=== PATIENT | female | born 1955 | race Caucasian/White ===

== ENCOUNTER 2021-03-24 19:05 | Inpatient (IN) | payer OTHER ==
[~2021-03-24] VITALS: Ht 149.9 cm; Wt 78.5 kg
[2021-03-24] MEDS ORDERED: ONDANSETRON HCL 4MG/2ML INJ IV STA (19:12)
[2021-03-24] MEDS ORDERED: SODIUM CHLORIDE 0.9% 500 ML IV ONE (19:15)
[2021-03-24 20:58] LABS: MEAN CORPUSCULAR HEMOGLOBIN 33.9 pg (28.0-32.0); MEAN CORPUSCULAR VOLUME 104.6 fL (81.0-99.0); MEAN PLATELET VOLUME 10.4 fl (7.4-10.4); PLATELET 149 x1000/uL (130-400); RED BLOOD CELL COUNT 1.67 mill/uL (4.2-5.4)
[2021-03-24] MEDS ORDERED: ACETAMINOPHEN 325MG TABLET PO ONE (21:00)
[2021-03-24 21:03] LABS: CHLORIDE 107 mEq/L (98-107)
[2021-03-24 21:08] LABS: ETHANOL BLOOD < 10 mg/dL
[2021-03-24 21:11] LABS: CREATINE KINASE 41 IU/L (26-192); PROTHROMBIN TIME 10.8 sec (9.6-11.0)
[2021-03-24 21:17] LABS: HEMATOCRIT. 17.5 % (36.0-48.0); HEMOGLOBIN. 5.7 g/dL (12.0-16.0)
[2021-03-24] MEDS ORDERED: PANTOPRAZOLE SODIUM 40 MG/VIAL IV NR (21:45)
[2021-03-24 22:14] LABS: PLATELET ESTIMATE NORMAL
[2021-03-24] MEDS ORDERED: CLONIDINE 0.1MG TABLET PO PRN (22:30)
[2021-03-24] MEDS ORDERED: ACETAMINOPHEN 325MG TABLET PO PRN (22:30)
[2021-03-24] MEDS ORDERED: DOCUSATE SODIUM 100MG CAPSULE PO PRN (22:30)
[2021-03-24] MEDS ORDERED: IPRATROPIUM/ALBUTEROL 0.5-3(2.5)MG/3ML NEB NEB PRN (22:30)
[2021-03-24] MEDS ORDERED: GUAIFENESIN 200MG/10ML SUGAR FREE UDC PO PRN (22:30)
[2021-03-24] MEDS ORDERED: MAGNESIUM/ALUMINUM HYDROXIDE/SIMETHICONE 30ML UDC PO PRN (22:30)
[2021-03-24] MEDS ORDERED: PANTOPRAZOLE 80 MG in SODIUM CHLORIDE 0.9% 100 ML IV SCH (23:00)
[2021-03-25] LABS: TOTAL IRON BINDING CAPACITY 158 ug/dL (250-450)
[2021-03-25 01:33] LABS: VITAMIN B12 SERUM 682 pg/mL (211-911)
[2021-03-25 01:34] LABS: FOLIC ACID (FOLATE) SERUM > 20.00 ng/mL (>5.38)
[2021-03-25] MEDS: DEXT 5%/0.45% NACL 1000ML 1,000 ML IV SCH ×3 (02:24→20:26)
[2021-03-25 06:16] LABS: CHLORIDE 111 mEq/L (98-107)
[2021-03-25 06:23] LABS: PHOSPHORUS 4.5 mg/dL (2.5-4.9)
[2021-03-25 06:41] LABS: BASOPHILS % 0.2 % (0.0-2.0); EOSINOPHILS % 0.1 % (0.0-5.0); HEMATOCRIT. 23.9 % (36.0-48.0); LYMPHOCYTES % 9.4 % (20.0-50.0); MEAN CORPUSCULAR HEMOGLOBIN 32.8 pg (28.0-32.0); MEAN CORPUSCULAR VOLUME 97.4 fL (81.0-99.0); MEAN PLATELET VOLUME 10.4 fl (7.4-10.4); MONOCYTES % 6.4 % (2.0-8.0); NEUTROPHILS % 83.9 % (40.0-76.0); PLATELET 100 x1000/uL (130-400); RED BLOOD CELL COUNT 2.46 mill/uL (4.2-5.4); RED CELL DISTRIBUTION WIDTH 17.5 % (11.6-14.6)
[2021-03-25] MEDS: PANTOPRAZOLE 80 MG in SODIUM CHLORIDE 0.9% 100 ML IV SCH ×2 (07:14→20:22)
[2021-03-25] MEDS ORDERED: CEFTRIAXONE 1 G PREMIX 50 ML IV SCH (09:00)
[2021-03-25] MEDS: ONDANSETRON HCL 4MG/2ML INJ IV PRN (10:13)
[2021-03-25] MEDS ORDERED: PANTOPRAZOLE SODIUM 40 MG/VIAL IV ONE (10:18)
[2021-03-25] MEDS ORDERED: NALOXONE HCL 0.4MG/ML VIAL IV PRN (16:30)
[2021-03-25] MEDS ORDERED: DEXTROSE 50% WATER 50ML SYRINGE IV PRN (16:30)
[2021-03-25] MEDS: INSULIN LISPRO 100 UNITS/ML SUBCUT SCH ×2 (17:00→23:31)
[2021-03-25] MEDS: MORPHINE SULFATE 2 MG/ML CPJ (NOT FOR IM USE) IV PRN (17:44)
[2021-03-25] MEDS: BLOOD SUGAR DIAGNOSTIC STRIP TEST SCH ×2 (17:45→21:18)
[2021-03-25 18:51] LABS: HEMATOCRIT 21.3 % (36.0-48.0); HEMOGLOBIN 7.2 g/dL (12.0-16.0)
[2021-03-25 22:00] VITALS: BP 107/60
[2021-03-26] VITALS (9 sets, daily range): BP systolic 96–132; BP diastolic 45–67
[2021-03-26] MEDS: MORPHINE SULFATE 2 MG/ML CPJ (NOT FOR IM USE) IV PRN (00:45)
[2021-03-26] MEDS: ONDANSETRON HCL 4MG/2ML INJ IV PRN ×3 (00:45→18:17)
[2021-03-26] MEDS: PANTOPRAZOLE 80 MG in SODIUM CHLORIDE 0.9% 100 ML IV SCH (06:18)
[2021-03-26] MEDS: DEXT 5%/0.45% NACL 1000ML 1,000 ML IV SCH ×2 (06:19→15:07)
[2021-03-26] MEDS: BLOOD SUGAR DIAGNOSTIC STRIP TEST SCH ×4 (06:22→21:46)
[2021-03-26] MEDS: INSULIN LISPRO 100 UNITS/ML SUBCUT SCH ×4 (07:23→21:57)
[2021-03-26] MEDS: ACETAMINOPHEN 325MG TABLET PO PRN ×2 (08:13→13:11)
[2021-03-26] MEDS: CEFTRIAXONE 1,000 MG in DEXTROSE 5% WATER 50 ML IV SCH (08:13)
[2021-03-26 13:17] LABS: BASOPHILS % 0.1 % (0.0-2.0); EOSINOPHILS % 0.1 % (0.0-5.0); HEMATOCRIT. 25.8 % (36.0-48.0); HEMOGLOBIN. 8.7 g/dL (12.0-16.0); LYMPHOCYTES % 8.2 % (20.0-50.0); MEAN CORPUSCULAR HEMOGLOBIN 31.8 pg (28.0-32.0); MEAN CORPUSCULAR VOLUME 94.5 fL (81.0-99.0); MONOCYTES % 5.5 % (2.0-8.0); NEUTROPHILS % 86.1 % (40.0-76.0); PLATELET 82 x1000/uL (130-400); RED BLOOD CELL COUNT 2.73 mill/uL (4.2-5.4); RED CELL DISTRIBUTION WIDTH 18.4 % (11.6-14.6)
[2021-03-26 13:29] LABS: PROTHROMBIN TIME 10.8 sec (9.6-11.0)
[2021-03-26] MEDS ORDERED: LORAZEPAM 2MG/ML CPJ IV PRN (13:45)
[2021-03-26] MEDS: HYDROCODONE/ACETAMINOPHEN 5/325MG TABLET PO PRN ×2 (15:07→22:02)
[2021-03-26] MEDS: VANCOMYCIN HCL 1000 MG/20 ML ORAL PO SCH ×2 (15:32→23:22)
[2021-03-26 17:48] LABS: CLARITY URINE TURBID (CLEAR); COLOR URINE ORANGE (YELLOW); KETONES URINE TRACE (NEGATIVE); LEUKOCYTE ESTERASE URINE 1+ (NEGATIVE); NITRITE URINE NEGATIVE (NEGATIVE); OCCULT BLOOD URINE 3+ (NEGATIVE); PH URINE 5.5 (4.5-8.0); PROTEIN URINE 3+ (NEGATIVE); SPECIFIC GRAVITY URINE 1.028 (1.005-1.030); UROBILINOGEN URINE 0.2 E.U./dL (0.2-1.0)
[2021-03-26] MEDS ORDERED: VANCOMYCIN HCL 1 GM/VIAL PO SCH (18:00)
[2021-03-26 21:29] LABS: HEMATOCRIT 24.1 % (36.0-48.0); HEMOGLOBIN 8.4 g/dL (12.0-16.0)
[2021-03-26] MEDS: PANTOPRAZOLE SODIUM 40 MG/VIAL IV SCH (21:56)
[2021-03-27] VITALS: BP 130/63
[2021-03-27] MEDS: DEXT 5%/0.45% NACL 1000ML 1,000 ML IV SCH ×3 (01:14→21:00)
[2021-03-27 04:00] VITALS: BP 108/59
[2021-03-27] MEDS: HYDROCODONE/ACETAMINOPHEN 5/325MG TABLET PO PRN (04:45)
[2021-03-27] MEDS: MORPHINE SULFATE 2 MG/ML CPJ (NOT FOR IM USE) IV PRN ×2 (05:28→12:33)
[2021-03-27 06:15] LABS: BASOPHILS % 0.4 % (0.0-2.0); EOSINOPHILS % 0.5 % (0.0-5.0); HEMATOCRIT. 25.9 % (36.0-48.0); HEMOGLOBIN. 8.7 g/dL (12.0-16.0); LYMPHOCYTES % 10.7 % (20.0-50.0); MEAN CORPUSCULAR HEMOGLOBIN 31.7 pg (28.0-32.0); MEAN CORPUSCULAR VOLUME 93.9 fL (81.0-99.0); MEAN PLATELET VOLUME 9.1 fl (7.4-10.4); NEUTROPHILS % 82.4 % (40.0-76.0); PLATELET 124 x1000/uL (130-400); RED BLOOD CELL COUNT 2.76 mill/uL (4.2-5.4); RED CELL DISTRIBUTION WIDTH 18.8 % (11.6-14.6)
[2021-03-27] MEDS: VANCOMYCIN HCL 1000 MG/20 ML ORAL PO SCH ×3 (06:35→21:21)
[2021-03-27] MEDS: BLOOD SUGAR DIAGNOSTIC STRIP TEST SCH ×4 (06:35→21:15)
[2021-03-27] MEDS: INSULIN LISPRO 100 UNITS/ML SUBCUT SCH ×4 (06:57→21:36)
[2021-03-27 08:20] VITALS: BP 102/55
[2021-03-27] MEDS: PANTOPRAZOLE SODIUM 40 MG/VIAL IV SCH ×2 (08:57→21:21)
[2021-03-27] MEDS: ONDANSETRON HCL 4MG/2ML INJ IV PRN ×2 (08:57→18:16)
[2021-03-27] MEDS: CEFTRIAXONE 1,000 MG in DEXTROSE 5% WATER 50 ML IV SCH (08:58)
[2021-03-27 12:05] VITALS: BP 121/66
[2021-03-27] MEDS ORDERED: PROT40 MT (13:51)
[2021-03-27] MEDS ORDERED: VANC125C11 MT (13:51)
[2021-03-27] MEDS ORDERED: ONDA4TAB5 MT (13:51)
[2021-03-27] MEDS ORDERED: HYDR-4001 MT (13:51)
[2021-03-27] MEDS: ACETAMINOPHEN 325MG TABLET PO PRN ×2 (16:02→23:22)
[2021-03-27 16:16] VITALS: BP 112/64
[2021-03-27 20:00] VITALS: BP 101/53
[2021-03-27] MEDS: METOCLOPRAMIDE HCL 10MG/2ML VIAL IV SCH (23:14)
[2021-03-28] VITALS (10 sets, daily range): BP systolic 91–153; BP diastolic 38–82
[2021-03-28 05:48] LABS: BASOPHILS % 0.1 % (0.0-2.0); EOSINOPHILS % 0.4 % (0.0-5.0); HEMATOCRIT. 22.6 % (36.0-48.0); HEMOGLOBIN. 7.6 g/dL (12.0-16.0); LYMPHOCYTES % 10.7 % (20.0-50.0); MEAN CORPUSCULAR VOLUME 94.6 fL (81.0-99.0); MEAN PLATELET VOLUME 9.6 fl (7.4-10.4); NEUTROPHILS % 82.8 % (40.0-76.0); PLATELET 85 x1000/uL (130-400); RED BLOOD CELL COUNT 2.39 mill/uL (4.2-5.4); RED CELL DISTRIBUTION WIDTH 19.2 % (11.6-14.6)
[2021-03-28] MEDS: DEXT 5%/0.45% NACL 1000ML 1,000 ML IV SCH ×2 (06:49→17:18)
[2021-03-28] MEDS: BLOOD SUGAR DIAGNOSTIC STRIP TEST SCH ×4 (06:50→21:21)
[2021-03-28] MEDS: VANCOMYCIN HCL 1000 MG/20 ML ORAL PO SCH ×3 (06:52→22:09)
[2021-03-28] MEDS: METOCLOPRAMIDE HCL 10MG/2ML VIAL IV SCH ×4 (06:53→23:42)
[2021-03-28] MEDS: INSULIN LISPRO 100 UNITS/ML SUBCUT SCH ×4 (07:50→22:16)
[2021-03-28] MEDS: PANTOPRAZOLE SODIUM 40 MG/VIAL IV SCH ×2 (08:55→22:09)
[2021-03-28] MEDS: CEFTRIAXONE 1,000 MG in DEXTROSE 5% WATER 50 ML IV SCH (08:55)
[2021-03-28] MEDS: ACETAMINOPHEN 325MG TABLET PO PRN ×3 (08:59→23:43)
[2021-03-28 17:30] LABS: HEMATOCRIT 28.3 % (36.0-48.0); HEMOGLOBIN 9.7 g/dL (12.0-16.0)
[2021-03-28 17:56] LABS: INR 0.9; PROTHROMBIN TIME 10.2 sec (9.6-11.0)
[2021-03-29] VITALS: BP 120/58
[2021-03-29] MEDS: DEXT 5%/0.45% NACL 1000ML 1,000 ML IV SCH ×3 (02:25→23:00)
[2021-03-29 04:00] VITALS: BP 113/58
[2021-03-29] MEDS: ACETAMINOPHEN 325MG TABLET PO PRN ×3 (06:26→21:21)
[2021-03-29] MEDS: VANCOMYCIN HCL 1000 MG/20 ML ORAL PO SCH ×3 (06:26→21:21)
[2021-03-29] MEDS: METOCLOPRAMIDE HCL 10MG/2ML VIAL IV SCH ×3 (06:26→18:21)
[2021-03-29] MEDS: BLOOD SUGAR DIAGNOSTIC STRIP TEST SCH ×4 (06:26→20:23)
[2021-03-29 06:47] LABS: BASOPHILS % 0.2 % (0.0-2.0); EOSINOPHILS % 0.5 % (0.0-5.0); HEMATOCRIT. 27.1 % (36.0-48.0); LYMPHOCYTES % 11.5 % (20.0-50.0); MEAN CORPUSCULAR HEMOGLOBIN 32.1 pg (28.0-32.0); MEAN CORPUSCULAR VOLUME 97.3 fL (81.0-99.0); MEAN PLATELET VOLUME 8.8 fl (7.4-10.4); MONOCYTES % 6.5 % (2.0-8.0); NEUTROPHILS % 81.3 % (40.0-76.0); PLATELET 101 x1000/uL (130-400); RED BLOOD CELL COUNT 2.79 mill/uL (4.2-5.4); RED CELL DISTRIBUTION WIDTH 18.6 % (11.6-14.6)
[2021-03-29] MEDS: INSULIN LISPRO 100 UNITS/ML SUBCUT SCH ×4 (06:49→20:34)
[2021-03-29] MEDS: CEFTRIAXONE 1,000 MG in DEXTROSE 5% WATER 50 ML IV SCH (10:00)
[2021-03-29] MEDS: PANTOPRAZOLE SODIUM 40 MG/VIAL IV SCH ×2 (10:00→20:19)
[2021-03-29] MEDS ORDERED: POTASSIUM CHLORIDE 20MEQ TABLET SR PO NR (11:15)
[2021-03-29 16:00] VITALS: BP 112/63
[2021-03-29 16:55] LABS: HEMATOCRIT. 32.2 % (36.0-48.0); HEMOGLOBIN. 10.4 g/dL (12.0-16.0); MEAN CORPUSCULAR HEMOGLOBIN 31.7 pg (28.0-32.0); MEAN CORPUSCULAR VOLUME 97.8 fL (81.0-99.0); MEAN PLATELET VOLUME 9.2 fl (7.4-10.4); PLATELET 125 x1000/uL (130-400); RED BLOOD CELL COUNT 3.29 mill/uL (4.2-5.4); RED CELL DISTRIBUTION WIDTH 18.9 % (11.6-14.6)
[2021-03-29 17:42] LABS: PLATELET ESTIMATE DECREASED
[2021-03-29 20:00] VITALS: BP 140/70
[2021-03-30] VITALS (10 sets, daily range): BP systolic 98–146; BP diastolic 40–95
[2021-03-30] MEDS: METOCLOPRAMIDE HCL 10MG/2ML VIAL IV SCH ×4 (00:16→17:25)
[2021-03-30] MEDS: ACETAMINOPHEN 325MG TABLET PO PRN ×3 (03:56→17:26)
[2021-03-30] MEDS: VANCOMYCIN HCL 1000 MG/20 ML ORAL PO SCH ×3 (06:01→21:31)
[2021-03-30] MEDS: BLOOD SUGAR DIAGNOSTIC STRIP TEST SCH ×4 (06:02→21:31)
[2021-03-30 06:57] LABS: BASOPHILS % 0.2 % (0.0-2.0); EOSINOPHILS % 0.7 % (0.0-5.0); LYMPHOCYTES % 10.7 % (20.0-50.0); MEAN CORPUSCULAR HEMOGLOBIN 32.1 pg (28.0-32.0); MEAN CORPUSCULAR VOLUME 94.7 fL (81.0-99.0); MEAN PLATELET VOLUME 8.9 fl (7.4-10.4); NEUTROPHILS % 82.4 % (40.0-76.0); PLATELET 96 x1000/uL (130-400); RED BLOOD CELL COUNT 2.69 mill/uL (4.2-5.4); RED CELL DISTRIBUTION WIDTH 18.2 % (11.6-14.6)
[2021-03-30] MEDS: INSULIN LISPRO 100 UNITS/ML SUBCUT SCH ×4 (07:50→21:36)
[2021-03-30 08:28] LABS: HEMATOCRIT. 25.5 % (36.0-48.0); HEMOGLOBIN. 8.6 g/dL (12.0-16.0)
[2021-03-30] MEDS: DEXT 5%/0.45% NACL 1000ML 1,000 ML IV SCH ×2 (08:33→19:00)
[2021-03-30] MEDS: PANTOPRAZOLE SODIUM 40 MG/VIAL IV SCH ×2 (08:33→21:29)
[2021-03-30] MEDS: GABAPENTIN 100MG CAPSULE PO SCH ×2 (11:56→17:25)
[2021-03-30 17:59] LABS: HEMATOCRIT 30.2 % (36.0-48.0); HEMOGLOBIN 10.3 g/dL (12.0-16.0)
[2021-03-30 18:08] LABS: PROTHROMBIN TIME 10.4 sec (9.6-11.0)
[2021-03-31] VITALS (7 sets, daily range): BP systolic 95–133; BP diastolic 56–78
[2021-03-31] MEDS: METOCLOPRAMIDE HCL 10MG/2ML VIAL IV SCH ×3 (00:14→14:05)
[2021-03-31] MEDS: ACETAMINOPHEN 325MG TABLET PO PRN ×3 (00:17→21:35)
[2021-03-31] MEDS: VANCOMYCIN HCL 1000 MG/20 ML ORAL PO SCH (06:07)
[2021-03-31] MEDS: DEXT 5%/0.45% NACL 1000ML 1,000 ML IV SCH (06:07)
[2021-03-31] MEDS: BLOOD SUGAR DIAGNOSTIC STRIP TEST SCH ×3 (06:08→16:43)
[2021-03-31 07:30] LABS: BASOPHILS % 0.2 % (0.0-2.0); HEMATOCRIT. 31.4 % (36.0-48.0); HEMOGLOBIN. 10.2 g/dL (12.0-16.0); LYMPHOCYTES % 12.9 % (20.0-50.0); MEAN CORPUSCULAR HEMOGLOBIN 31.8 pg (28.0-32.0); MEAN CORPUSCULAR VOLUME 97.4 fL (81.0-99.0); MEAN PLATELET VOLUME 9.2 fl (7.4-10.4); MONOCYTES % 6.5 % (2.0-8.0); NEUTROPHILS % 79.4 % (40.0-76.0); PLATELET 105 x1000/uL (130-400); RED BLOOD CELL COUNT 3.23 mill/uL (4.2-5.4); RED CELL DISTRIBUTION WIDTH 18.3 % (11.6-14.6)
[2021-03-31] MEDS: INSULIN LISPRO 100 UNITS/ML SUBCUT SCH ×3 (07:50→16:43)
[2021-03-31] MEDS: HYDROCODONE/ACETAMINOPHEN 5/325MG TABLET PO PRN (09:47)
[2021-03-31] MEDS: PANTOPRAZOLE SODIUM 40 MG/VIAL IV SCH (09:47)
[2021-03-31] MEDS: GABAPENTIN 100MG CAPSULE PO SCH ×3 (09:47→16:43)
[2021-03-31] MEDS ORDERED: VANCOMYCIN HCL 1 GM/VIAL PO SCH (18:00)
[2021-03-31] MEDS ORDERED: VANCOMYCIN HCL 1000 MG/20 ML ORAL PO SCH (18:00)
[2021-04-01 04:07] LABS: OVA & PARASITE EXAM Final report (.)
== END 2021-03-31 22:55 | DRG 377 ==
LOC: ER 19:05 → MICUSO 22:10 → EDBEDREQTM 22:14 → EDBEDREQ 22:14 → EDBEDREQSVC 03-25 01:57 → 6WST 03-25 20:48
PROVIDERS: ADMIT Internal Medicine; ATTEND Internal Medicine
PROC: 30233N1 Transfusion of Nonautologous Red Blood Cells into Peripheral Vein, Percutaneous Approach (ICD-10-PCS; principal; 2021-03-24)
DX: K92.2 Gastrointestinal hemorrhage, unspecified (principal); E43 Unspecified severe protein-calorie malnutrition; D62 Acute posthemorrhagic anemia; E87.1 Hypo-osmolality and hyponatremia; C56.9 Malignant neoplasm of unspecified ovary; E87.2 Acidosis; N17.9 Acute kidney failure, unspecified; N13.30 Unspecified hydronephrosis; A04.72 Enterocolitis due to Clostridium difficile, not specified as recurrent; C79.9 Secondary malignant neoplasm of unspecified site; D69.6 Thrombocytopenia, unspecified; E83.51 Hypocalcemia; I10 Essential (primary) hypertension; D53.9 Nutritional anemia, unspecified; D64.81 Anemia due to antineoplastic chemotherapy; T45.1X5A Adverse effect of antineoplastic and immunosuppressive drugs, initial encounter; Z20.822 Contact with and (suspected) exposure to COVID-19; E11.65 Type 2 diabetes mellitus with hyperglycemia; I95.9 Hypotension, unspecified; E78.5 Hyperlipidemia, unspecified; N93.9 Abnormal uterine and vaginal bleeding, unspecified; Y92.89 Other specified places as the place of occurrence of the external cause; Z68.35 Body mass index [BMI] 35.0-35.9, adult
CPT/HCPCS: 36415; 71045; 74176; 76856; 80048; 80053; 80320; 81003; 82270; 82550; 82607; 82728; 82746; 82962; 83036; 83540; 83550; 83605; 83615; 83735; 83880; 84100; 84145; 84484; 85014; 85018; 85025; 85049; 85384; 86140; 86850; 86900; 86920; 87045; 87177; 87209; 87426; 87493; 89055; 93005; 93970; 97116; 97162; 97530; 99291; C9113; J0696; J1815; J2270; J2405; J2765; J3370; J7040; J7042; J7050; J7060; P9016; G0480

== ENCOUNTER 2021-05-28 12:53 | Inpatient (IN) | payer OTHER ==
[~2021-05-28] VITALS: Ht 149.9 cm; Wt 103.6 kg
[~2021-05-28 12:53] MED LIST: HYDR-4001 MT; ONDA4TAB5 MT; PROT40 MT; VANC125C11 MT
[2021-05-28] MEDS ORDERED: omeprazole (13:14)
[2021-05-28] MEDS ORDERED: metformin (13:14)
[2021-05-28] MEDS ORDERED: gabapentin (13:14)
[2021-05-28] MEDS ORDERED: zofran (13:14)
[2021-05-28 16:31] LABS: HEMATOCRIT. 28.2 % (36.0-48.0); HEMOGLOBIN. 8.6 g/dL (12.0-16.0); MEAN CORPUSCULAR HEMOGLOBIN 32.4 pg (28.0-32.0); MEAN CORPUSCULAR VOLUME 106.3 fL (81.0-99.0); PLATELET 141 x1000/uL (130-400); RED BLOOD CELL COUNT 2.65 mill/uL (4.2-5.4); RED CELL DISTRIBUTION WIDTH 20.2 % (11.6-14.6)
[2021-05-28 16:38] LABS: CHLORIDE 110 mEq/L (98-107)
[2021-05-28 16:39] LABS: INR 1.1; PROTHROMBIN TIME 11.6 sec (9.6-11.0)
[2021-05-28] MEDS ORDERED: FUROSEMIDE 100MG/10ML VIAL IV STA (17:05)
[2021-05-28] MEDS ORDERED: ALBUTEROL (0.083%) 2.5MG/3ML NEB HHN ONE (17:15)
[2021-05-28] MEDS ORDERED: CALCIUM CHLORIDE 1GM/10ML SYR IV ONE (17:15)
[2021-05-28] MEDS ORDERED: AZITHROMYCIN 500MG/250ML 250 ML IV ONE (17:15)
[2021-05-28] MEDS ORDERED: PIPERACILLIN/TAZOBACTAM 3.375GM/50ML PREMIX IV ONE (17:15)
[2021-05-28] MEDS ORDERED: SODIUM BICARBONATE 8.4% 1 MEQ/ML 50ML SYR IV ONE (17:15)
[2021-05-28] MEDS ORDERED: DEXTROSE 50% WATER 50ML SYRINGE IV ONE (17:15)
[2021-05-28] MEDS ORDERED: INSULIN REGULAR (HUMULIN R) 300UNITS/3ML VIAL IV ONE (17:15)
[2021-05-28] MEDS ORDERED: PIPERACILLIN/TAZ 3.375G PREMIX 50 ML IV NR (17:30)
[2021-05-28 18:56] LABS: PLATELET ESTIMATE NORMAL
[2021-05-29] MEDS ORDERED: VANCOMYCIN 2,000 MG in DEXT 5% WATER 500 ML IV NR (04:45)
[2021-05-29] MEDS ORDERED: DIPHENHYDRAMINE 50MG/ML VIAL IV PRN (11:00)
[2021-05-29] MEDS ORDERED: GUAIFENESIN 200MG/10ML SUGAR FREE UDC PO PRN (11:00)
[2021-05-29] MEDS ORDERED: DOCUSATE SODIUM 100MG CAPSULE PO PRN (11:00)
[2021-05-29] MEDS ORDERED: LORAZEPAM 0.5MG TABLET PO PRN (11:00)
[2021-05-29] MEDS ORDERED: CLONIDINE 0.1MG TABLET PO PRN (11:00)
[2021-05-29] MEDS ORDERED: ACETAMINOPHEN 650MG SUPP PR PRN (11:00)
[2021-05-29] MEDS ORDERED: NA PHOS,M-B/NA PHOS,DI-BA ENEMA 118ML PR PRN (11:00)
[2021-05-29] MEDS ORDERED: IPRATROPIUM/ALBUTEROL 0.5-3(2.5)MG/3ML NEB NEB PRN (11:00)
[2021-05-29] MEDS ORDERED: ONDANSETRON HCL 4MG/2ML INJ IV PRN (11:00)
[2021-05-29] MEDS ORDERED: MAGNESIUM/ALUMINUM HYDROXIDE/SIMETHICONE 30ML UDC PO PRN (11:00)
[2021-05-29 11:37] LABS: BG BASE EXCESS -11.4 mmol/L (-2.0-2.0); BG CARBOXYHEMOGLOBIN 0.3 % (0.5-1.5); BG DEOXYHEMOGLOBIN 3.6 % (0.0-5.0); BG FRACTION INSPIRED OXYGEN 28; BG HCO3 ACT 13.8 mmol/L (22.0-26.0); BG METHEMOGLOBIN 0.3 % (0.0-1.5); BG OXYGEN SATURATION 96.4 % (92.0-98.5); BG OXYHEMOGLOBIN 95.8 % (94.0-97.0); BG PCO2 28.9 mmHg (35.0-45.0); BG PH 7.297 (7.350-7.450); BG SAMPLE SITE RIGHT BRACHIAL; BG TOTAL HEMOGLOBIN 9.4 g/dL (12.0-18.0); BG VENT MODE NASAL CANNULA
[2021-05-29 11:37] LABS: HEMATOCRIT. 26.3 % (36.0-48.0); HEMOGLOBIN. 8.3 g/dL (12.0-16.0); MEAN CORPUSCULAR HEMOGLOBIN 32.8 pg (28.0-32.0); MEAN CORPUSCULAR VOLUME 104.7 fL (81.0-99.0); MEAN PLATELET VOLUME 8.1 fl (7.4-10.4); PLATELET 116 x1000/uL (130-400); RED BLOOD CELL COUNT 2.51 mill/uL (4.2-5.4); RED CELL DISTRIBUTION WIDTH 19.9 % (11.6-14.6)
[2021-05-29 11:41] LABS: CHLORIDE 109 mEq/L (98-107)
[2021-05-29] MEDS: HYDROCODONE/ACETAMINOPHEN 5/325MG TABLET PO PRN (12:12)
[2021-05-29] MEDS ORDERED: SODIUM BICARBONATE 8.4% 1 MEQ/ML 50ML SYR IV NR (13:00)
[2021-05-29] MEDS ORDERED: IPRATROPIUM/ALBUTEROL 0.5-3(2.5)MG/3ML NEB HHN SCH (15:00)
[2021-05-29] MEDS: PIPERACILLIN/TAZ 3.375G PREMIX 50 ML IV SCH ×2 (16:13→21:25)
[2021-05-29 20:39] LABS: CLARITY URINE CLEAR (CLEAR); COLOR URINE YELLOW (YELLOW); KETONES URINE NEGATIVE (NEGATIVE); LEUKOCYTE ESTERASE URINE NEGATIVE (NEGATIVE); NITRITE URINE NEGATIVE (NEGATIVE); OCCULT BLOOD URINE NEGATIVE (NEGATIVE); PROTEIN URINE TRACE (NEGATIVE); SPECIFIC GRAVITY URINE 1.013 (1.005-1.030); UROBILINOGEN URINE 0.2 E.U./dL (0.2-1.0)
[2021-05-29] MEDS: FAMOTIDINE 20MG TABLET PO SCH (21:25)
[2021-05-29] MEDS ORDERED: NALOXONE HCL 0.4MG/ML VIAL IV PRN (23:00)
[2021-05-30] VITALS: BP 106/66
[2021-05-30 01:47] VITALS: BP 106/66
[2021-05-30] MEDS ORDERED: ONDA4TAB5 PO (02:57)
[2021-05-30] MEDS ORDERED: GABA-529 PO (02:57)
[2021-05-30 04:00] VITALS: BP 108/64
[2021-05-30] MEDS: ACETAMINOPHEN 325MG TABLET PO PRN ×2 (06:26→18:26)
[2021-05-30] MEDS: PIPERACILLIN/TAZOBACTAM 3.375G in DEXT 5% WATER 50ML IV SCH ×3 (06:26→21:21)
[2021-05-30] MEDS ORDERED: SODIUM BICARBONATE 4% (2.4MEQ) 5ML VIAL IV ONE (08:08)
[2021-05-30 12:00] VITALS: BP 109/58
[2021-05-30] MEDS ORDERED: MORPHINE SULFATE 2 MG/ML CPJ (NOT FOR IM USE) IV PRN (14:30)
[2021-05-30] MEDS ORDERED: DIGOXIN 500MCG/2ML AMP IV NR (14:30)
[2021-05-30 15:19] LABS: BG BASE EXCESS -12.8 mmol/L (-2.0-2.0); BG CARBOXYHEMOGLOBIN 0.3 % (0.5-1.5); BG DEOXYHEMOGLOBIN 2.2 % (0.0-5.0); BG FRACTION INSPIRED OXYGEN 28; BG HCO3 ACT 11.5 mmol/L (22.0-26.0); BG METHEMOGLOBIN 0.4 % (0.0-1.5); BG OXYGEN SATURATION 97.8 % (92.0-98.5); BG OXYHEMOGLOBIN 97.1 % (94.0-97.0); BG PCO2 21.9 mmHg (35.0-45.0); BG PH 7.337 (7.350-7.450); BG SAMPLE SITE RIGHT BRACHIAL; BG TOTAL HEMOGLOBIN 9.2 g/dL (12.0-18.0); BG VENT MODE NASAL CANNULA
[2021-05-30 15:59] LABS: HEMATOCRIT. 25.7 % (36.0-48.0); HEMOGLOBIN. 8.1 g/dL (12.0-16.0); MEAN CORPUSCULAR HEMOGLOBIN 33.5 pg (28.0-32.0); MEAN CORPUSCULAR VOLUME 106.7 fL (81.0-99.0); MEAN PLATELET VOLUME 8.7 fl (7.4-10.4); PLATELET 88 x1000/uL (130-400); RED BLOOD CELL COUNT 2.41 mill/uL (4.2-5.4)
[2021-05-30 16:00] VITALS: BP 92/37
[2021-05-30 16:37] LABS: CHLORIDE 108 mEq/L (98-107)
[2021-05-30 16:46] LABS: LDL CHOLESTEROL 91 mg/dL (5-100)
[2021-05-30 16:48] LABS: HDL CHOLESTEROL 16 mg/dL (40-59); T4 FREE 0.96 ng/dL (0.76-1.46)
[2021-05-30] MEDS ORDERED: SODIUM BICARBONATE 650 MG TABLET PO SCH ×2 (17:00→23:00)
[2021-05-30] MEDS ORDERED: SODIUM BICARBONATE 8.4% 1 MEQ/ML 50ML SYR IV NR (17:00)
[2021-05-30 18:04] LABS: PLATELET ESTIMATE DECREASED
[2021-05-30 20:00] VITALS: BP 109/61
[2021-05-30 20:02] LABS: BG BASE EXCESS -9.5 mmol/L (-2.0-2.0); BG CARBOXYHEMOGLOBIN 0.3 % (0.5-1.5); BG DEOXYHEMOGLOBIN 2.2 % (0.0-5.0); BG FRACTION INSPIRED OXYGEN 28; BG HCO3 ACT 13.8 mmol/L (22.0-26.0); BG METHEMOGLOBIN 0.4 % (0.0-1.5); BG OXYGEN SATURATION 97.8 % (92.0-98.5); BG OXYHEMOGLOBIN 97.1 % (94.0-97.0); BG PCO2 22.5 mmHg (35.0-45.0); BG PH 7.407 (7.350-7.450); BG PO2 111.3 mmHg (75.0-100.0); BG SAMPLE SITE RIGHT BRACHIAL; BG TOTAL HEMOGLOBIN 8.4 g/dL (12.0-18.0); BG VENT MODE NASAL CANNULA
[2021-05-30] MEDS: FAMOTIDINE 20MG TABLET PO SCH (21:21)
[2021-05-31] VITALS: BP 106/55
[2021-05-31] MEDS: SODIUM BICARBONATE 650 MG TABLET PO SCH ×5 (00:04→23:37)
[2021-05-31 04:00] VITALS: BP 118/44
[2021-05-31] MEDS: PIPERACILLIN/TAZOBACTAM 3.375G in DEXT 5% WATER 50ML IV SCH (06:20)
[2021-05-31 08:00] VITALS: BP 111/39
[2021-05-31 08:55] LABS: HEMATOCRIT. 26.9 % (36.0-48.0); HEMOGLOBIN. 7.6 g/dL (12.0-16.0); MEAN CORPUSCULAR HEMOGLOBIN 32.4 pg (28.0-32.0); MEAN CORPUSCULAR VOLUME 114.1 fL (81.0-99.0); PLATELET 68 x1000/uL (130-400); RED BLOOD CELL COUNT 2.36 mill/uL (4.2-5.4)
[2021-05-31 10:55] LABS: PLATELET ESTIMATE DECREASED
[2021-05-31] MEDS ORDERED: VANCOMYCIN 1 G PREMIX 200 ML IV NR (12:00)
[2021-05-31] MEDS ORDERED: SODIUM POLYSTYRENE SULFONATE 15 G/60 ML BOT PO NR (12:00)
[2021-05-31] MEDS: HYDROCODONE/ACETAMINOPHEN 5/325MG TABLET PO PRN (15:13)
[2021-05-31 16:00] VITALS: BP 101/48
[2021-05-31 20:00] VITALS: BP 121/51
[2021-05-31] MEDS: FAMOTIDINE 20MG TABLET PO SCH (21:08)
[2021-05-31] MEDS: PIPERACILLIN/TAZOBACTAM 3.375 G in DEXTROSE 5% WATER 50 ML IV SCH (21:08)
[2021-06-01] VITALS (8 sets, daily range): BP systolic 95–127; BP diastolic 49–66
[2021-06-01] MEDS: SODIUM BICARBONATE 650 MG TABLET PO SCH ×3 (05:43→18:08)
[2021-06-01] MEDS: PIPERACILLIN/TAZOBACTAM 3.375 G in DEXTROSE 5% WATER 50 ML IV SCH ×2 (09:30→20:20)
[2021-06-01] MEDS ORDERED: VANCOMYCIN 500 MG PREMIX 100 ML IV NR (12:00)
[2021-06-01 12:41] LABS: HEMATOCRIT. 24.6 % (36.0-48.0); HEMOGLOBIN. 7.3 g/dL (12.0-16.0); MEAN CORPUSCULAR HEMOGLOBIN 33.3 pg (28.0-32.0); MEAN PLATELET VOLUME 8.5 fl (7.4-10.4); PLATELET 60 x1000/uL (130-400); RED BLOOD CELL COUNT 2.18 mill/uL (4.2-5.4); RED CELL DISTRIBUTION WIDTH 20.3 % (11.6-14.6)
[2021-06-01 13:31] LABS: PLATELET ESTIMATE DECREASED
[2021-06-01] MEDS ORDERED: ALBUMIN HUMAN 12.5G/250ML (5%) IV NR (15:00)
[2021-06-01] MEDS ORDERED: FUROSEMIDE 40MG/4ML VIAL IVP NR (20:00)
[2021-06-01] MEDS: FAMOTIDINE 20MG TABLET PO SCH (20:20)
[2021-06-02] VITALS (9 sets, daily range): BP systolic 103–133; BP diastolic 59–73
[2021-06-02] MEDS: SODIUM BICARBONATE 650 MG TABLET PO SCH ×5 (05:06→23:18)
[2021-06-02] MEDS ORDERED: FUROSEMIDE 40MG/4ML VIAL IVP NR (06:00)
[2021-06-02] MEDS: PIPERACILLIN/TAZOBACTAM 3.375 G in DEXTROSE 5% WATER 50 ML IV SCH ×2 (09:34→20:49)
[2021-06-02 09:52] LABS: HEMATOCRIT 27.4 % (36.0-48.0); HEMOGLOBIN 8.9 g/dL (12.0-16.0)
[2021-06-02 10:03] LABS: INR 1.1; PROTHROMBIN TIME 11.5 sec (9.6-11.0)
[2021-06-02 10:09] LABS: HEMATOCRIT. 27.9 % (36.0-48.0); MEAN CORPUSCULAR HEMOGLOBIN 31.8 pg (28.0-32.0); MEAN PLATELET VOLUME 9.3 fl (7.4-10.4); PLATELET 68 x1000/uL (130-400); RED BLOOD CELL COUNT 2.82 mill/uL (4.2-5.4); RED CELL DISTRIBUTION WIDTH 19.6 % (11.6-14.6)
[2021-06-02 16:14] LABS: PLATELET ESTIMATE DECREASED
[2021-06-02 16:25] LABS: HEMATOCRIT 26.1 % (36.0-48.0); HEMOGLOBIN 8.5 g/dL (12.0-16.0)
[2021-06-02] MEDS: FAMOTIDINE 20MG TABLET PO SCH (20:49)
[2021-06-03] VITALS: BP 128/62
[2021-06-03 04:00] VITALS: BP 115/65
[2021-06-03] MEDS: SODIUM BICARBONATE 650 MG TABLET PO SCH (05:10)
[2021-06-03 07:46] LABS: HEMATOCRIT. 28.2 % (36.0-48.0); HEMOGLOBIN. 9.1 g/dL (12.0-16.0); MEAN CORPUSCULAR HEMOGLOBIN 31.9 pg (28.0-32.0); MEAN CORPUSCULAR VOLUME 98.4 fL (81.0-99.0); MEAN PLATELET VOLUME 8.5 fl (7.4-10.4); PLATELET 73 x1000/uL (130-400); RED BLOOD CELL COUNT 2.86 mill/uL (4.2-5.4); RED CELL DISTRIBUTION WIDTH 19.8 % (11.6-14.6)
[2021-06-03 08:00] VITALS: BP 120/73
[2021-06-03] MEDS: PIPERACILLIN/TAZOBACTAM 3.375 G in DEXTROSE 5% WATER 50 ML IV SCH (09:27)
[2021-06-03] MEDS: ACETAMINOPHEN 325MG TABLET PO PRN (09:35)
[2021-06-03 12:13] VITALS: BP 112/72
[2021-06-03] MEDS ORDERED: FUROSEMIDE 40MG/4ML VIAL IVP NR (12:30)
[2021-06-03 13:59] LABS: PLATELET ESTIMATE DECREASED
[2021-06-03 14:40] VITALS: BP_SYST 162; BP_SYST 164; BP_DIAS 95
[2021-06-03 16:00] VITALS: BP 165/89
[2021-06-03] MEDS ORDERED: METOPROLOL TARTRATE 25MG TABLET PO NR (16:30)
== END 2021-06-03 21:25 | DRG 871 ==
LOC: ER 13:01 → MICUSO 17:13 → EDBEDREQ 17:17 → ENRESERV 05-29 20:51 → 7EST 05-29 22:52
PROVIDERS: ADMIT Internal Medicine; ATTEND Internal Medicine
PROC: 0W9B3ZZ Drainage of Left Pleural Cavity, Percutaneous Approach (ICD-10-PCS; principal; 2021-05-30)
PROC: 30233N1 Transfusion of Nonautologous Red Blood Cells into Peripheral Vein, Percutaneous Approach (ICD-10-PCS; 2021-06-01)
DX: A41.9 Sepsis, unspecified organism (principal); J18.9 Pneumonia, unspecified organism; J96.01 Acute respiratory failure with hypoxia; C56.9 Malignant neoplasm of unspecified ovary; C79.9 Secondary malignant neoplasm of unspecified site; I13.0 Hypertensive heart and chronic kidney disease with heart failure and stage 1 through stage 4 chronic kidney disease, or unspecified chronic kidney disease; K92.2 Gastrointestinal hemorrhage, unspecified; N13.30 Unspecified hydronephrosis; N17.9 Acute kidney failure, unspecified; I82.413 Acute embolism and thrombosis of femoral vein, bilateral; I82.433 Acute embolism and thrombosis of popliteal vein, bilateral; J91.8 Pleural effusion in other conditions classified elsewhere; E11.22 Type 2 diabetes mellitus with diabetic chronic kidney disease; E78.5 Hyperlipidemia, unspecified; R32 Unspecified urinary incontinence; Z20.822 Contact with and (suspected) exposure to COVID-19; E87.5 Hyperkalemia; N18.32 Chronic kidney disease, stage 3b; I50.9 Heart failure, unspecified; Z95.828 Presence of other vascular implants and grafts; Z79.899 Other long term (current) drug therapy; Z79.84 Long term (current) use of oral hypoglycemic drugs
CPT/HCPCS: 32555; 36415; 36600; 71045; 73562; 74176; 76770; 78580; 80048; 80053; 80061; 80202; 81003; 82040; 82375; 82805; 82962; 83605; 83615; 83880; 84145; 84439; 84443; 84478; 84484; 85014; 85018; 85025; 85044; 85049; 85384; 86850; 86900; 86920; 87426; 87804; 88108; 88312; 93005; 93306; 93970; 94640; 97162; 99291; J0456; J1160; J1815; J1940; J2405; J2543; J3370; J3490; J7040; J7060; P9016; P9041